=== PATIENT | female | born 1930 | race Caucasian/White ===

== ENCOUNTER 2018-07-09 17:39 | Inpatient (IN) | payer OTHER, MEDICARE ==
[~2018-07-09] VITALS: Ht 149.9 cm; Wt 42.8 kg
[2018-07-09 17:59] VITALS: Ht 149.9 cm; Wt 42.8 kg
--- NOTE | 2018-07-09 18:19 | NUR ---
PT COMES TO ER WITH C/O ABDOMIANL DISTENTION FOR THE LAST SEVERAL DAYS, PT WAS BIBA FROM NURSING HALF-WAY. PER BLS REPORT, PT HAS BEEN COMPLAINING OF ABD DISTENTION, ALL BLOOD WORK AND TESTS HAVE REVEALED NOTHING SIGNIFICANT AT LONGTERM , BUT PER REPORT; FAMILY WANTED TO BRING HER HERE TO ER FOR A SECOND EVALUATION. PT AAOX4, IN NAD. DENIES ANY PAIN OR SOB, NO N/V/D. NO FAMILY AT BEDSIDE. SAFETY PRECAUTIONS IN PLACE, CALLLIGHT WITHIN RANGE. DOORS LEFT OPEN FOR VISIBILITY. DR VOSS IN ROOM FOR EXAM.
[2018-07-09 18:22] LABS: BASOPHIL % 1.1 % (0-2); PLATELET COUNT 288 x10^3mcL (130-400); RED CELL DISTRIBUTION WIDTH 16.9 % (11.5-14.5)
--- NOTE | 2018-07-09 18:29 | NUR ---
IV INSERTED TO RT AC #20, GOOD BLOOD RETURN. CN AWARE THAT IT MAY BE IN THE ARTERY, TO CHECK WELL. PENDING OTHER IV INSERTION. VSS
--- NOTE | 2018-07-09 18:41 | NUR ---
CONNER GIBSON FROM [facility] CALLED FOR REPORT, LAST BM 07/06/18. STATES PT IS HERE FOR SECOND EVAL.
[2018-07-09 18:53] LABS: CALCIUM 9.3 mg/dL (8.5-10.1); CARBON DIOXIDE 25.6 mmol/L (21-32); CHLORIDE SERUM 104 mmol/L (98-107); CREATININE SERUM 0.9 mg/dL (0.6-1.0); GLUCOSE SERUM 101 mg/dL (74-106); SODIUM SERUM 138 mmol/L (136-145)
[2018-07-09 18:57] LABS: ALKALINE PHOSPHATASE 134 U/L (46-116); ALT/SGPT 37 U/L (14-59); AST/SGOT 50 U/L (15-37); BILIRUBIN TOTAL 0.7 mg/dL (0.20-1.00); LIPASE 44 IU/L (73-393)
[2018-07-09 18:58] LABS: TOTAL PROTEIN, SERUM 5.9 g/dL (6.4-8.2)
--- NOTE | 2018-07-09 19:00 | NUR ---
SECOND RN AT BEDSIDE TO CONFIRM PLACEMENT, WILL ENDORSE TO ONCOMING RN.
--- NOTE | 2018-07-09 19:12 | NUR ---
RECEIVED REPORT FROM VAMSHI GONZALEZ. I WILL RESUME FURTHER CARE OF THIS PATIENT.
--- NOTE | 2018-07-09 19:30 | NUR ---
PT IS AAOX4, NO DISTRESS NOTED, RESP E/U. PT DENIES ANY PAIN AT THIS TIME. PT ON MONITOR, VSS. WILL CONT TO MONITOR.
--- NOTE | 2018-07-09 20:40 | NUR ---
PT TAKEN OFF THE FLOOR VIA GURNEY BY [employer] AND RETURNED WITHOUT INCIDENT.
--- NOTE | 2018-07-09 21:27 | NUR ---
PT IN POSTION OF COMFORT LAYING IN BED, NO DISTRESS NOTED. OFFERED ANOTHER BLANKET TO PT SINCE SHE STATED SHE WAS COLD. RESP E/U. GRANDAUGHTER AT THE BEDSIDE. WILL CONT TO MONITOR.
--- NOTE | 2018-07-09 21:52 | NUR ---
PLACED PT ON BEDPAN TO COLLECT URINE. NOTED PT HAD A WET DIAPER. CLEANED PT AND PLACED A NEW DIAPER ON. NOTED PT HAS PAD TO COCCYX AREA, NOTED BLANCHABLE REDNESS TO SKIN. PT TOLERATED BED URIOSTEGUI WELL. PT PLACE IN POSITION OF COMFORT BACK IN BED. NO SIGNS OF DISTRESS, AAOX4, RESP E/U. WILL CONT TO MONITOR.
--- NOTE | 2018-07-09 22:20 | NUR ---
PT RESTING IN POSITION OF COMFORT, AAOX4, NO DISTRESS NOTED, RESP E/U. WILL CONT TO MONITOR.
[2018-07-09 23:28] LABS: microscopic required? NO
[2018-07-09] MEDS ORDERED: D-20001 TAB PO (23:39)
[2018-07-09] MEDS ORDERED: NOR5 PO (23:39)
[2018-07-09] MEDS ORDERED: ASPIRIN ADULT L81 M5 PO (23:39)
[2018-07-09] MEDS ORDERED: AMIODARONE HCL200 MG PO (23:39)
[2018-07-09] MEDS ORDERED: VITAMIN B121000 MCG PO ×2 (23:39→23:41)
[2018-07-09] MEDS ORDERED: MULTI-VITAMINS1 TAB PO (23:40)
[2018-07-09] MEDS ORDERED: TOPROL XL25 MG PO (23:40)
[2018-07-09] MEDS ORDERED: TIROSINT75 MC1 PO (23:40)
[2018-07-09] MEDS ORDERED: ELIQUIS2.5 MG PO (23:40)
[2018-07-09] MEDS ORDERED: DULCOLAX10 M1 RC (23:41)
[2018-07-09] MEDS ORDERED: ACETAMINOP160 MG/52 PO (23:41)
[2018-07-09] MEDS ORDERED: TRAMADOL HCL50 MG PO (23:42)
[2018-07-09] MEDS ORDERED: FLEET ENEMA135 ML RC (23:42)
[2018-07-09] MEDS ORDERED: NITROGLYCERIN0.4 MG SL (23:42)
[2018-07-09] MEDS ORDERED: ROBL PO (23:42)
[2018-07-09] MEDS ORDERED: GOOD NEIGH1200 MG/15 PO (23:42)
[2018-07-09 23:49] LABS: PHOSPHOROUS 2.6 mg/dL (2.5-4.9)
[2018-07-09 23:50] LABS: CHOLESTEROL/HDL RATIO 4.9
[2018-07-09 23:52] LABS: urine erythrocyte NEGATIVE (NEGATIVE)
[2018-07-10] VITALS (12 sets, daily range): BP systolic 101–155; BP diastolic 39–74
[2018-07-10 00:06] LABS: FREE T4 1.41 ng/dL (0.76-1.46); FREE THYROXINE INDEX 3.8 ug/dL (1.4-4.5); T4(THYROXINE) 10.1 ug/dL (4.7-13.3)
--- NOTE | 2018-07-10 00:23 | NUR ---
GAVE REPORT TO PASTOR GONZALEZ ON TELE, WHO WILL RESUME FURTHER CARE OF THIS PATIENT.
[2018-07-10 00:25] LABS: T3 TOTAL 0.46 ng/mL
--- NOTE | 2018-07-10 00:35 | NUR ---
DURING IV INSERTION, NOTED ECCHYMOSIS AND SWELLING NOTED ON LEFT HAND FROM A PREVIOUS IV INSERTION ATTEMPT BY ANOTHER NURSE
--- NOTE | 2018-07-10 01:24 | NUR ---
RECEIVED PT FROM ED VIA IBIS. ORIENTED PT TO ROOM AND SURROUNDINGS. IV NOTED TO PATENT AND INTACT. INSTRUCTED PT ON THE USE OF CALL LIGHT FOR ASSISTANCE. ENDORSED PT TO PRIMARY NURSE PASTOR
--- NOTE | 2018-07-10 02:00 | NUR ---
TURNED AND REPOSITIONED FOR COMFORT. PLACED CALL LIGHT WITHIN REACH, DAUGHTER AT BEDSIDE VERY SUPPORTIVE OF PT'S CURRENT PLAN OF CARE.CALLLIGHT WITHIN REACH. INSTRUCTED PT/DAUGHTER TO CALL FOR ANY ASSISTANCE NEEDED AND VERBALIZED UNDERSTANDING.
--- NOTE | 2018-07-10 04:30 | NUR ---
TYLENOL 650MG PO GIVEN FOR ABDOMINAL PAIN ON SCAE 05/18. LASIX 40MG IVP GIVEN ORDERED. ZOSYN 2.25GM NOT GIVEN, NOT AVAILABLE AT [facility] MADE AWARE AND INSTRUCTED TO WAIT FOR THE AM PHARMACY, ANYWAY ZOSY 3.375GM GIVEN AT ER. TONY NURSE AWARE.
--- NOTE | 2018-07-10 06:18 | NUR ---
PAIN LEVEL 0/10, KEPT CLEAN AND DRY. ALL NEEDS ATTEDNED.
[2018-07-10 07:16] LABS: CALCIUM 9.2 mg/dL (8.5-10.1); CARBON DIOXIDE 22.8 mmol/L (21-32); CHLORIDE SERUM 105 mmol/L (98-107); CREATININE SERUM 0.9 mg/dL (0.6-1.0); GLUCOSE SERUM 93 mg/dL (74-106); POTASSIUM SERUM 3.9 mmol/L (3.5-5.1); SODIUM SERUM 136 mmol/L (136-145)
[2018-07-10 07:20] LABS: BASOPHIL % 0.8 % (0-2); PLATELET COUNT 294 x10^3mcL (130-400)
--- NOTE | 2018-07-10 07:40 | NUR ---
PATIENT RESTING IN BED, NO ACUTE RESP DISTRESS NOTED. PATIENT ON 2L NC. LUNGS SOUNDS DIMINISHED TO THE BASES. ABD APPEARS DISTENDED. ECCHYMOSIS NOTED TO BUE. BLANCHABLE ERYTHEMA TO COOCYS, OPTIFAOM APPLIED. IV TO LH SALINE LOCK. CALL LIGHT WITHIN REACH, BED IN LOW POSITION, WILL CONTINUE TO MONIOTR.
[2018-07-10 08:13] LABS: RED CELL DISTRIBUTION WIDTH 17.2 % (11.5-14.5)
--- NOTE | 2018-07-10 08:20 | NUR ---
PHYSICAL THERAPY AT BEDSIDE.
--- NOTE | 2018-07-10 10:20 | NUR ---
PATIENT IV TO LEFT HAND BECAME INFILTRATIED, CATH INTEACT. NEW 22G IV INSERTED TO RFA, IV INSERTED BY LISA CONWAY. IV SITE CDI, AND PATENT. CALL LIGHT WITHIN REACH, BED IN LOW POSITION WILL CONTINUE TO MONITOR.
--- NOTE | 2018-07-10 13:45 | NUR ---
DR MCKEON AT BEDSIDE FOR PARACENTESIS. DR MCKEON, EXPLAINED PROCEDURE, PATIENT UNDERSTOOD AND SIGNED CONSENT FOR PARACENTESIS.
[2018-07-10 16:58] LABS: SOURCE FLUID ASCITES
[2018-07-10 16:59] LABS: APPEARANCE FLUID HAZY; COLOR FLUID PALE YELLOW; LYMPHOCYTE FLUID 25 %; MONOCYTE FLUID 68 %; RBC FLUID 150 /cumm; WBC FLUID 40 /cumm
--- NOTE | 2018-07-10 19:00 | NUR ---
PATIENT IS STABLE, NO ACUTE DISTRESS NOTED. PATIENT DENIES PAIN. NO SOB, PATIENT ON ROOM AIR. IV TO RFA CDI, NO S/S OF INFILTRATION. FAMILY AT BEDSIDE. CALL LIGHT WITHIN REACH, BED IN LOW POSITION.
--- NOTE | 2018-07-10 19:30 | NUR ---
RECEIVED REPORT FROM DAY SHIFT RN. PT RESTING IN BED. AA&O TO PERSON AND PLACE. REORIENTED TO TIME. NO SOB ON O2 2L VIA NC. NO C/O PAIN. NO DISTRESS NOTED. IV TO RFA, INTACT. SAFETY MEASURES IN PLACE. BED IN LOWEST POSITION. SIDE RAILS UP X2. AIR MATTRESS IN PLACE. DEMONSTRATED HOW TO USE THE CALL LIGHT FOR ASSISTANCE. CALL LIGHT WITHIN REACH. FAMILY AT BEDSIDE.
--- NOTE | 2018-07-11 00:50 | NUR ---
PT RESTING WITH EYES CLOSED. NO SOB ON O2 2L VIA NC. BREATHING EVEN AND UNLABORED. NO FACIAL GRIMACING. NO DISTRESS NOTED. SAFETY MEASURES IN PLACE. CALL LIGHT WITHIN EASY REACH.
[2018-07-11 04:56] VITALS: BP 106/53
--- NOTE | 2018-07-11 05:58 | NUR ---
PT SLEPT AT LONG INTERVALS. NO SOB ON O2 2L VIA NC. BREATHING EVEN AND UNLABORED. NO C/O PAIN. NO DISTRESS NOTED. SAFETY MEASURES MAINTAINED. ALL NEEDS ATTENDED TO. ASSISTED WITH REPOSITIONING. PT MADE COMFORTABLE. WILL ENDORSE CONTINUITY OF CARE TO ONCOMING RN.
--- NOTE | 2018-07-11 07:15 | NUR ---
RECEIVED PT FROM FACILITIES PLANT ENGINEER. PT AWAKE, ALERT. A/OX2. PT ON 2LNC WITH NO RESP DISTRESS NOTED. PT ON TELE #5, NO CHEST PAIN NOTED. IV ACCESS RFA, C/D/I. PERIPHERAL PULSES PALPABLE, NO EDEMA NOTED. ACTIVE BOWEL SOUNDS NOTED. PT DENIES PAIN AT THIS TIME. SAFETY MEASURES IN PLACE, BED LOW AND LOCKED. CALL LIGHT WITHIN REACH.
[2018-07-11 07:58] LABS: BASOPHIL % 0.2 % (0-2); PLATELET COUNT 272 x10^3mcL (130-400)
[2018-07-11 08:00] LABS: RED CELL DISTRIBUTION WIDTH 17.1 % (11.5-14.5)
[2018-07-11 08:30] LABS: CARBON DIOXIDE 26.5 mmol/L (21-32); CHLORIDE SERUM 104 mmol/L (98-107); CREATININE SERUM 1.2 mg/dL (0.6-1.0); GLUCOSE SERUM 92 mg/dL (74-106); PHOSPHOROUS 3.2 mg/dL (2.5-4.9); POTASSIUM SERUM 3.5 mmol/L (3.5-5.1); SODIUM SERUM 138 mmol/L (136-145)
[2018-07-11 09:45] VITALS: BP 113/51
--- NOTE | 2018-07-11 10:49 | NUR ---
PT LYING IN BED AT THIS TIME. PT STATES SHE IS "TIRED". ALBUMIN IV ADMINISTERED ORDERED (SEE EMAR). ATTORNEY LAWYER WITH PATIENT CLEANING AND REPOSITIONING. SAFETY MEASURES MAINTAINED.
--- NOTE | 2018-07-11 12:58 | NUR ---
PT COMPLAINING OF PAIN TO KNEES 10/10 FROM ARTHRITIS PER FAMILY MEMBER TRANSLATING. OXYCODONE ADMINISTERED ORDERED PRN (SEE EMAR). PT CLEANED AND REPOSITONED WITH SPINDLE SANDER. WILL MONITOR. SAFETY MAINTAINED.
--- NOTE | 2018-07-11 14:18 | NUR ---
PT RESTING COMFORTABLY AT THIS TIME. NO DISCOMFORT NOTED. WILL CONT TO MONITOR.
[2018-07-11 14:20] VITALS: BP 105/43
--- NOTE | 2018-07-11 16:16 | NUR ---
PHYSICAL THERAPY DAILY NOTES CO-SIGN All documentation done by the Piling Cutter for 07/11/18 has been reviewed. I agree with the documentation. Reviewed/Co-Signed by: Deloris Glover PT Documentation Done by:ASHLEY CHINCHILLA PTA
[2018-07-11 17:09] VITALS: BP 96/35
--- NOTE | 2018-07-11 18:53 | NUR ---
PT STABLE AT THIS TIME. ALL NEEDS TENDED TO THROUGHOUT SHIFT. NO ACUTE DISTRESS OR DISCOMFORT NOTED. SAFETY MEASURES IN PLACE. WILL CONTINUE TO MONITOR AND ENDORSE TO CONSULTING PROJECT DIRECTOR.
--- NOTE | 2018-07-11 19:30 | NUR ---
RECEIVED PT IN BED AAOX2 WITH FAMILY AT BEDSIDE.NO ACUTE RESPIRATORY DISTRESS NOTED. NO S/S OF PAIN AT THIS TIME. IV SITE PATENT AND INTACT. ECCHYMOSIS BUE AND BLANCHABLE ERYTHEMA TO COCCYX WITH OPTIFOAM. BED IN LOWEST POSITION,CALL LIGHT WITHIN RECH. WILL CONTINUE TO MONITOR.
[2018-07-11 21:13] VITALS: BP 117/42
[2018-07-12 05:45] VITALS: BP 120/47
[2018-07-12 06:20] LABS: BASOPHIL % 0.3 % (0-2); PLATELET COUNT 241 x10^3mcL (130-400)
[2018-07-12 06:47] LABS: RED CELL DISTRIBUTION WIDTH 16.7 % (11.5-14.5)
[2018-07-12 06:52] LABS: CALCIUM 9.5 mg/dL (8.5-10.1); CARBON DIOXIDE 26.4 mmol/L (21-32); CHLORIDE SERUM 104 mmol/L (98-107); CREATININE SERUM 1.3 mg/dL (0.6-1.0); GLUCOSE SERUM 116 mg/dL (74-106); PHOSPHOROUS 2.8 mg/dL (2.5-4.9); POTASSIUM SERUM 3.1 mmol/L (3.5-5.1); SODIUM SERUM 139 mmol/L (136-145)
--- NOTE | 2018-07-12 07:35 | NUR ---
CARE ENDORSED TO DAY NURSE
[2018-07-12 09:00] VITALS: BP 122/46
--- NOTE | 2018-07-12 13:00 | NUR ---
PT WAS SEEN BY PT [facility] TODAY AND WAS OUT OF BED TO BEDSIDE CHAIR. FAMILY IN THE ROOM.
--- NOTE | 2018-07-12 15:30 | NUR ---
ELLIE FROM ADMISSION AT [facility] IS HERE AND INQUIRED ABOUT PT'S POSSIBLE D/C. SHE ASKED TO BE CALLED IF PT WILL BE D/C BACK TO [facility]; SHE GAVE CONTACT NO: [phone]
--- NOTE | 2018-07-12 16:23 | NUR ---
PT IS SLEEPING BUT EASILY AROUSABLE; OX1; TAMAZIGHT SPEAKING; NO SOB; O2 2L/NC IN USE. DENIES PAIN AT THIS TIMES. SL ON THE LFA INTACT. FAMILY IN THE ROOM. FALL AND SAFETY PRECAUTION REINFORCED; WILL CONTINUE TO MONITOR STATUS.
--- NOTE | 2018-07-12 17:00 | NUR ---
PT IS MORE CONVERSANT FILIPE WITH FAMILY MEMBERS; O2/NC OFF AT THIS TIME. NO SOB.
[2018-07-12 17:52] VITALS: BP 139/54
--- NOTE | 2018-07-12 19:05 | NUR ---
NO NEW ACUTE CHANGES IN STATUS. REMAIN ON RM AIR WITHOUT SOB. WILL CONTINUE TO MONITOR STATUS.
--- NOTE | 2018-07-12 19:35 | NUR ---
RECEIVED PT LAYING IN BED, NO ACUTE DISTRESS OBSERVED, SON AT BEDSIDE. 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 MED-SURG, NO TELE, DENIES CP. PULSES PRESENT AND EQUAL THROUGHOUT, NO EDEMA. BREATHING ON 2L NC, EVEN AND UNLABORED, DENIES SOB OR DYSPNEA, LUNGS DIM TO BASES, O2 SAT 94% ABD ROUND AND SOFT WITH ACTIVE BOWEL SOUNDS, NO N/V/D. INCONTINENT OF STOOL AND URINE, WILL PROVIDE PERICARE NEEDED. GENERALIZED WEAKNESS AND R SIDE WEAKNESS, W/C BOUND AT BASELINE, TURN A REPOSITION Q2H. ECCHYMOSIS TO BUE, BLANCHABLE ERYTHEMA TO COCCYX, OPTIFOAM IN PLACE CDI. IV TO LFA IN PLACE, DRY, PATENT, INTACT, S/L, NO PAIN, REDNESS OR SWELLING NOTED. COMFORT AND SAFETY MEASURES IN PLACE. ALL NEEDS ASSESSED AND ATTENDED TO. CALL LIGHT WITHIN REACH. WILL CONTINUE TO MONITOR
[2018-07-12 20:20] VITALS: BP 102/45
[2018-07-13 02:20] VITALS: BP 120/43
[2018-07-13 05:15] VITALS: BP 106/43
--- NOTE | 2018-07-13 05:15 | NUR ---
PT C/O PAIN TO BLE, REQUESTING PAIN MED. MEDICATED WITH PRN NORCO PER EMAR
--- NOTE | 2018-07-13 05:45 | NUR ---
PT'S B/P 106/43 WITH MAP OF 64. [address]. WITT MADE AWARE, NO NEW ORDERS. PT DENIES PAYNE, DIZZINESS OR DISCOMFORT AT THIS TIME. NO DISTRESS OBSERVED. CALL LIGHT WITHIN REACH. WILL CONTINUE TO MONITOR
--- NOTE | 2018-07-13 06:06 | NUR ---
NO SIGNIFICANT CHANGES TO REPORT, PT COMPLIED WITH NURSING CARE THROUGHOUT THE SHIFT WITH NO ACUTE EVENTS OVERNIGHT. NO ACUTE DISTRESS OBSERVED AT THIS TIME, PT LAYING IN BED, BREATHING EVEN AND UNLABORED, AROUSABLE TO VERBAL STIMULI. COMFORT AND SAFETY MEASURES MAINTAINED. ALL NEEDS ASSESSED AND ATTENDED TO. CALL LIGHT WITHIN REACH. WILL CONTINUE TO MONITOR AND ENDORSE CARE TO DAY SHIFT NURSE
[2018-07-13 06:24] LABS: BASOPHIL % 0.2 % (0-2); PLATELET COUNT 223 x10^3mcL (130-400)
[2018-07-13 06:36] LABS: CALCIUM 9.2 mg/dL (8.5-10.1); CARBON DIOXIDE 27.9 mmol/L (21-32); CHLORIDE SERUM 105 mmol/L (98-107); CREATININE SERUM 1.3 mg/dL (0.6-1.0); GLUCOSE SERUM 115 mg/dL (74-106); POTASSIUM SERUM 3.8 mmol/L (3.5-5.1); SODIUM SERUM 140 mmol/L (136-145)
--- NOTE | 2018-07-13 07:35 | NUR ---
RECEIVED PT IN NO ACUTE DISTRESS. SLEEPING BUT AROUSABLE. BREATHING EVEN AND UNLABORED ON 2L NC. NO PAIN NOTED. ON AIR MATTRESS, TURN Q2H. IV TO LFA, NO REDNESS OR SWELLING. SON AT BEDSIDE. FALL PRECAUTIONS IN PLACE. BED IN LOW POSITION, CALL LIGHT WITHIN REACH. WILL CONTINUE TO MONITOR.
[2018-07-13 07:46] LABS: RED CELL DISTRIBUTION WIDTH 17.3 % (11.5-14.5)
[2018-07-13 08:23] VITALS: BP 117/53
--- NOTE | 2018-07-13 08:46 | NUR ---
PT SITTING UP IN CHAIR EATING BREAKFAST. ASSISTED BY PT'S SON. WILL CONTINUE TO MONITOR.
--- NOTE | 2018-07-13 13:56 | NUR ---
PT WITH POOR APPETITE. FAMILY REQUESTING FOR PT TO HAVE ENSURE. ROBIN PROMOTIONS COORDINATOR MADE AWARE AND GAVE TELEPHONE ORDER TO ADD ENSURE WITH EACH MEAL. WILL CARRY OUT ORDERS.
[2018-07-13 17:29] VITALS: BP 118/46
--- NOTE | 2018-07-13 18:22 | NUR ---
PT IN NO ACUTE DISTRESS. RESP EVEN AND UNLABORED ON 2L NC. RT PROTOCOL. POOR APPETITE. IVF INFUSING, NO REDNESS OR SWELLING. NO C/O PAIN. ON AIR MATTRESS. BED IN LOW POSITION, CALL LIGHT WITHIN REACH. WILL ENDORSE TO ONCOMING SHIFT.
--- NOTE | 2018-07-13 19:30 | NUR ---
RECEIVED PT LAYING IN BED, NO ACUTE DISTRESS OBSERVED. 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 MED-SURG, NO TELE, DENIES CP. PULSES PRESENT AND EQUAL THROUGHOUT, NO EDEMA. BREATHING ON 2L NC, EVEN AND UNLABORED, DENIES SOB OR DYSPNEA, LUNGS DIM TO BASES, O2 SAT 95% ABD ROUND AND SOFT WITH ACTIVE BOWEL SOUNDS, NO N/V. INCONTINENT OF STOOL AND URINE, WILL PROVIDE PERICARE NEEDED. GENERALIZED WEAKNESS AND R SIDE WEAKNESS, W/C BOUND AT BASELINE, TURN A REPOSITION Q2H. ECCHYMOSIS TO BUE, BLANCHABLE ERYTHEMA TO COCCYX, OPTIFOAM IN PLACE CDI. IV TO LFA IN PLACE, DRY, PATENT, INTACT, S/L, NO PAIN, REDNESS OR SWELLING NOTED. COMFORT AND SAFETY MEASURES IN PLACE. ALL NEEDS ASSESSED AND ATTENDED TO. CALL LIGHT WITHIN REACH. WILL CONTINUE TO MONITOR
--- NOTE | 2018-07-13 20:48 | NUR ---
PT C/O PAIN IN HER WHOLE BODY AND REQUESTING PAIN MED. MEDICATED WITH PRN NORCO PER EMAR
[2018-07-13 20:52] VITALS: BP 102/50
[2018-07-14 05:55] VITALS: BP 141/51
--- NOTE | 2018-07-14 06:22 | NUR ---
NO SIGNIFICANT CHANGES TO REPORT, PT COMPLIED WITH NURSING CARE THROUGHOUT THE SHIFT WITH NO ACUTE EVENTS OVERNIGHT. NO ACUTE DISTRESS NOTED AT THIS TIME, PT LAYING IN BED, BREATHING EVEN AND UNLABORED, AROUSABLE TO VERBAL STIMULI. COMFORT AND SAFETY MEASURES MAINTAINED. ALL NEEDS ASSESSED AND ATTENDED TO. CALL LIGHT WITHIN REACH. WILL CONTINUE TO MONITOR AND ENDORSE CARE TO DAY SHIFT NURSE
[2018-07-14 06:36] LABS: CALCIUM 9.3 mg/dL (8.5-10.1); CARBON DIOXIDE 28.6 mmol/L (21-32); CHLORIDE SERUM 104 mmol/L (98-107); CREATININE SERUM 1.4 mg/dL (0.6-1.0); GLUCOSE SERUM 117 mg/dL (74-106); POTASSIUM SERUM 3.6 mmol/L (3.5-5.1); SODIUM SERUM 139 mmol/L (136-145)
[2018-07-14 07:00] LABS: BASOPHIL % 0.5 % (0-2); PLATELET COUNT 233 x10^3mcL (130-400)
--- NOTE | 2018-07-14 07:50 | NUR ---
PATIENT RESTING IN BED. NO ACUTE RESP. DISTRESS NOTED. PATIENT ON 2L NC. LUNG SOUNDS DIMINISHED TO THE BASES. ABDOMEN APPEARS SOFT/DISTENDED, BOWELS SOUNDS ACTIVE X4. PATIENT IS INCONTINENT. PATIENT C/O PAIN OF 05/18 BUT TOLERABLE. PATIENT IS ABLE TO TRANSFER TO CHAIR WITH MAX ASSIST. ECCHYMOSIS NOTED TO BUE, OPTIFOAM APPLIED TO COCCYX . IV TO LFA CDI, NO S/S OF INFILTRATION. FAMILY AT BEDSIDE. CALL LIGHT WITHIN REACH, BED IN LOW POSITION, WILL CONTINUE TO MONITOR FOR CHANGES.
--- NOTE | 2018-07-14 09:00 | NUR ---
HELD ALDACTONE, NORVASC, AND LASIX. PATIENT BP WAS 108/53. ROPING TENDER ROBIN MADE AWARE. FAMILY ASKED IF THEY COULD BRING PATIENT FOOD FROM HOME, ROPING TENDER ROBIN SAID FOOD FROM HOME IS OKAY. CALL LIGHT WITHIN REACH, BED IN LOW POSITION. WILL CONTINUE TO MONITOR.
[2018-07-14 09:40] VITALS: BP 108/53
--- NOTE | 2018-07-14 10:20 | NUR ---
PHYSICAL THERAPY AT BEDSIDE.
--- NOTE | 2018-07-14 16:58 | NUR ---
PHYSICAL THERAPY DAILY NOTES CO-SIGN All documentation done by the Dermatological Surgeon for 07/14/18 has been reviewed. I agree with the documentation. Reviewed/Co-Signed by: Deloris Glover PT Documentation Done by:ASHLEY CHINCHILLA PTA
--- NOTE | 2018-07-14 17:04 | NUR ---
PAITENT C/O PAIN TO BLE. HELP REPOSITION PATIENT TO ALLEVIATE PAIN AND MEDICATED PATIENT WITH NORCO PER PROTOCOL. WILL CONTINUE TO MONITOR PATIENT, FAMILY AT BEDSIDE. CALL LIGHT WITHIN REACH, BED IN LOW POSITION.
--- NOTE | 2018-07-14 17:28 | NUR ---
PHYSICAL THERAPY DAILY NOTES CO-SIGN All documentation done by the Microbiology Lab Analyst for 07/14/18 has been reviewed. I agree with the documentation. Reviewed/Co-Signed by: Kashif Escoto PT Documentation Done by:SAKSHI RODGERS YOUTH PROBATION OFFICER FOR 07/12/2018
[2018-07-14 17:52] VITALS: BP 139/51
--- NOTE | 2018-07-14 19:10 | NUR ---
PATIENT IS STABLE AT THIS TIME, NO ACUTE CHANGES THROUGH OUT SHIFT. PATIENT DENIES PAIN AT THIS TIME. IV TO LFA SALINE LOCK, NO S/S OF INFILTRATION. FAMILY AT BEDSIDE. AIR MATRESS IN PLACE. CALL LIGHT WITHIN REACH, BED IN LOW POSITION. ENDORSED REPORT TO MP.
--- NOTE | 2018-07-14 19:35 | NUR ---
PT RESTING IN BED, NO ACUTE DISTRESS NOTED. AOX3, DENIES PAYNE/DIZZINESS. FORGETFUL AT TIMES. MEDSURG PT, DENIES CP. PULSES PALPABLE BILAT, DENIES NUMBNESS/TINGLING IN FEET. PT ON ELIQUID FOR HX OF A FIB. RESP EVEN AND UNLABORED ON 2LNC, DENIES SOB. ABD SOFT, ROUND, DISTENTION NOTED. DENEIS ABD PAIN. PT ON LACTULOSE. PT INCONTINENT OF URINE AND STOOL. GENERALIZED WEAKNESS, ON AIR MATTRESS. PT USES W/C AT BASELINE. PT FROM TRELLIS. PT WITH ECCHYMOSIS TO BUE, BLNCHABLE ERYTHEMA NOTED TO COCCYX. OPTIFORM IN PLACE. CDI. IV SITE SALINE LOCKED TO LFA, NO REDNESS, SWELLING OR PAIN NOTED. ALL COMFORT AND SAFETY MEASURES PROVIDED FOR, CALL LIGHT WITHIN REACH, BED IN LOWEST POSITION, WILL CONTINUE TO MONITOR.
[2018-07-14 21:57] VITALS: BP 130/67
[2018-07-14 22:00] VITALS: BP 130/67
--- NOTE | 2018-07-15 05:15 | NUR ---
PT RESTED IN INTERVALS DURING SHIFT, NO ACUTE CHANGES OCCURRING OVERNIGHT. PT HAD 2 BM AND URINATED DURING SHIFT. PT REMAINS ON 2LNC. PT MEDICATED X1 WITH NORCO FOR GENERALIZED PAIN. ALL COMFORT AND SAFETY MEASURES PROVIDED FOR, CALL LIGHT WITHIN REACH, BED IN LOWEST POSITION, WILL CONTINUE TO MONITOR.
[2018-07-15 06:19] VITALS: BP 125/70
[2018-07-15 06:35] LABS: BASOPHIL % 0.4 % (0-2); PLATELET COUNT 182 x10^3mcL (130-400)
[2018-07-15 06:52] LABS: CALCIUM 9.3 mg/dL (8.5-10.1); CARBON DIOXIDE 27.1 mmol/L (21-32); CHLORIDE SERUM 104 mmol/L (98-107); CREATININE SERUM 1.3 mg/dL (0.6-1.0); GLUCOSE SERUM 96 mg/dL (74-106); POTASSIUM SERUM 3.6 mmol/L (3.5-5.1); SODIUM SERUM 137 mmol/L (136-145)
[2018-07-15 06:56] LABS: RED CELL DISTRIBUTION WIDTH 17.6 % (11.5-14.5)
--- NOTE | 2018-07-15 07:20 | NUR ---
RECEIVED BEDSIDE REPORT FROM DIRECTOR OF WEB MARKETING NURSE AT THIS TIME. PATIENT RESTING COMFORTABLY IN BED. NO APPARENT DISTRESS OR DISCOMFORT NOTED. BREATHING EVEN AND UNLABORED. NO RESPIRATORY DISTRESS NOTED. NO INDICATION OF SHORTNESS OF BREATH. NO INDICATION OF CHEST PAIN AT THIS TIME. IV PATENT AND INTACT. ALL NEEDS ATTENDED TO. WILL CONTINUE TO MONITOR
--- NOTE | 2018-07-15 07:37 | NUR ---
ENDORSED ALL CARE TO DAYSHIFT NURSE, ALL QUESTIONS AND CONCERNS ADDRESSED, ALL COMFORT AND SAFETY MEASURES PROVIDED FOR, CALL LIGHT WITHIN REACH. BED IN LOWEST POSITION.
[2018-07-15 09:00] VITALS: BP 128/50
--- NOTE | 2018-07-15 10:22 | NUR ---
ALL MORNING MEDICATIONS ADMINISTERED. PATIENT TOLERATED MEDICATION WELL. NO ADVERSE EFFECTS NOTED. ALL NEEDS ATTENDED TO. WILL CONTINUE TO MONITOR
--- NOTE | 2018-07-15 13:15 | NUR ---
PATIENT EATING LUNCH AT THIS TIME. PATIENT REPORTS POOR APPETITE. PATIENT OKAY DRINKING ENSURE SUPPLEMENT ON DIET TRAY. ALL NEEDS ATTENDED TO. WILL CONTINUE TO MONITOR
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
--- NOTE | 2018-07-15 13:20 | NUR ---
1. Recommend continuing puree diet. 2. Recommend Ensure Enlive BID
[2018-07-15 17:37] VITALS: BP 101/49
--- NOTE | 2018-07-15 18:53 | NUR ---
PATIENT RESTING COMFORTABLY IN BED AT THIS TIME. NO APPARENT DISTRESS OR DISCOMFORT NOTED. IV PATENT AND INTACT. ALL QUESTIONS AND CONCERNS ADDRESSED. SAFETY PRECAUTIONS MAINTAINED. ALL NEEDS ATTENDED TO. WILL ENDORSE ALL CARE TO REPAIRER AND CHECKER NURSE
--- NOTE | 2018-07-15 19:30 | NUR ---
RECEIVED REPORT FROM DAY SHIFT RN. PT RESTING IN BED. A/O TO PERSON AND PLACE. REORIENTED TO TIME. NO SOB ON O2 2L VIA NC. NO C/O PAIN AT THIS TIME. NO DISTRESS NOTED. IV TO LFA, INTACT. SAFETY MEASURES IN PLACE. ON AIR MATTRESS. BED IN LOWEST POSITION. SIDE RAILS UP X2. INSTRUCTED PT TO USE THE CALL LIGHT FOR ASSISTANCE. CALL LIGHT WITHIN REACH.
[2018-07-15 21:04] VITALS: BP 119/45
--- NOTE | 2018-07-15 23:18 | NUR ---
PT C/O NAUSEA, MEDICATED WITH ZOFRAN.
--- NOTE | 2018-07-16 01:00 | NUR ---
PT RESTING WITH EYES CLOSED. NO SOB ON O2 2L VIA NC. NO DISTRESS NOTED. SAFETY MEASURES IN PLACE. CALL LIGHT WITHIN REACH.
--- NOTE | 2018-07-16 05:36 | NUR ---
PT SLEPT IN INTERVALS DURING SHIFT. NO SOB ON O2 2L VIA NC. BREATHING EVEN AND UNLABORED. NO C/O PAIN. SAFETY MEASURES MAINTAINED. ALL NEEDS ATTENDED TO. CALL LIGHT WITHIN REACH. WILL ENDORSE CONTINUITY OF CARE TO ONCOMING RN.
[2018-07-16 05:38] VITALS: BP 111/47
--- NOTE | 2018-07-16 06:30 | NUR ---
PHYSICAL THERAPY DAILY NOTES CO-SIGN All documentation done by the Latin Teacher for 07/16/18 has been reviewed. I agree with the documentation. Reviewed/Co-Signed by: Deloris Glover PT Documentation Done by:ASHLEY CHINCHILLA PTA FOR 07/15/18
[2018-07-16 06:33] LABS: BASOPHIL % 0.5 % (0-2); PLATELET COUNT 197 x10^3mcL (130-400)
[2018-07-16 06:42] LABS: CALCIUM 9.4 mg/dL (8.5-10.1); CARBON DIOXIDE 27.5 mmol/L (21-32); CHLORIDE SERUM 103 mmol/L (98-107); CREATININE SERUM 1.3 mg/dL (0.6-1.0); GLUCOSE SERUM 124 mg/dL (74-106); POTASSIUM SERUM 3.7 mmol/L (3.5-5.1); SODIUM SERUM 138 mmol/L (136-145)
[2018-07-16 06:47] LABS: RED CELL DISTRIBUTION WIDTH 17.4 % (11.5-14.5)
--- NOTE | 2018-07-16 07:10 | NUR ---
RECEIVED PATIENT AWAKE/ALERT IN BED, NO DISTRESS NOTED. DENIES PAIN. ASSISTING PATIENT SITTING UP IN BED. NO TELE. IV TO LFA INTACT AND SL NOTED. CALL LIGHT IN REACH.
--- NOTE | 2018-07-16 08:51 | NUR ---
PATIENT WANT TO LEAVE [facility]. RAFAEL Menchaca AT BEDSIDE EXPLAINED TO PATIENT AT LEAST NEED TO CHANGE THE RT FOOT DRESSING BEFORE LEAVING, PATIENT AGREE. PT AT BEDSIDE TRY TO TRAIN PATIENT ON USE CRUTCHES. PATIENT PULL OUT HIS IV ON PURPOSE RIGHT IN FRONT OF PT AND SPRING COILING MACHINE SETTER CASIMIRO AT BEDSIDE TO TRANSLATE.
[2018-07-16 09:57] VITALS: BP 109/46
--- NOTE | 2018-07-16 10:23 | NUR ---
PATIENT AWAKE/ALERT IN BED WITH FAMILY MEMBERS AT BEDSIDE, ADMINSITERED ALL PO MEDS WITH APPLESAUCE PATIENT TOLERATED WELL. LASIX IVP ADMINISTERED TO LFA IV PATENT AND FLUSH WELL. TREATING ENGINEER HELPER [place] CAME TO SPEAK WITH JERRY BURKS AND UPDATE POC, DISCUSS PLAN DISCHARGE TO [facility]. NEEDS ATTENDED. CALL LIGHT IN REACH.
--- NOTE | 2018-07-16 10:58 | NUR ---
P.T. NOTES UNABLE TO SEE PATIENT FOR P.T., STATES NOT FEELING WELL AT THE MOMENT, ALSO PER FAMILY PATIENT WILL BE GETTING DC TODAY TO SNF.
--- NOTE | 2018-07-16 13:03 | NUR ---
PATIENT SITTING UP IN BED ATE ABOUT 20% OF HER MEAL, DUE MEDS ADMINISTERED, ZOSYN IVPB INFUSING TO LFA IV PATENT. ASSIST PATIENT WITH DRINK. CALL LIGHT IN REACH.
[2018-07-16] MEDS ORDERED: ZOS2PM IV (15:01)
[2018-07-16 15:25] VITALS: BP 109/46
--- NOTE | 2018-07-16 17:28 | NUR ---
PATIENT LAYING IN BED NO DSITRESS NOTED, NEW IV STARTED TO #22G BY ZENAIDA RN, LFA IV LEAKING AND REMOVED, NO SWELLING NOTED. ZOSYN IVPB INFUSING TO . DUE MEDS GIVEN WITH APPLESAUCE. TOLERATED WELL. PAUL CARE PROVIDED FOR INCONT OF URINE. CHANGE TO ORANGE GOWN. DISCHARGE INSTRUCTION EXPLAINED TO DTR KIMMIE AT BEDSIDE. ALL QUESTION ADDRESSED. CALL LIGHT IN REACH.
--- NOTE | 2018-07-16 18:11 | NUR ---
CALLED TO AWILDA GAVE REPORT PRINCESS, PATIENT WILL BE [facility] AT 6:30PM.
--- NOTE | 2018-07-16 18:50 | NUR ---
REPORT GIVEN TO PREMIER EMT, PATIENT TRANSPORT VIA [facility]. DTR ACCOMPANY PATIENT TO [facility] IV TO HEPLOCK AND CONT IV ABX AT [facility]. ALL BELONGINGS WITH DTR.
--- NOTE | 2018-07-17 06:24 | NUR ---
PHYSICAL THERAPY DAILY NOTES CO-SIGN All documentation done by the [employer] for 07/17/18 has been reviewed. I agree with the documentation. Reviewed/Co-Signed by: Deloris Glover PT Documentation Done by:ASHLEY CHINCHILLA PTA FOR 07/16/18
== END 2018-07-16 18:50 ==
LOC: ED 17:39 → DU 22:40 → MU 07-11 15:10
PROVIDERS: Emergency Medicine; Family Medicine; ADMIT Internal Medicine
PROC: 0W9G3ZZ Drainage of Peritoneal Cavity, Percutaneous Approach (ICD-10-PCS; principal; 2018-07-10)
DX: K76.89 Other specified diseases of liver (principal); N17.0 Acute kidney failure with tubular necrosis; J96.00 Acute respiratory failure, unspecified whether with hypoxia or hypercapnia; E43 Unspecified severe protein-calorie malnutrition; J90 Pleural effusion, not elsewhere classified; J18.9 Pneumonia, unspecified organism; R18.8 Other ascites; I48.0 Paroxysmal atrial fibrillation; I69.351 Hemiplegia and hemiparesis following cerebral infarction affecting right dominant side; F03.90 Unspecified dementia, unspecified severity, without behavioral disturbance, psychotic disturbance, mood disturbance, and anxiety; Y95 Nosocomial condition; I10 Essential (primary) hypertension; R27.0 Ataxia, unspecified; E03.9 Hypothyroidism, unspecified; B18.2 Chronic viral hepatitis C; I25.2 Old myocardial infarction; Z68.1 Body mass index [BMI] 19.9 or less, adult; Z79.01 Long term (current) use of anticoagulants; Z79.899 Other long term (current) drug therapy
CPT/HCPCS: 49083; 84439; 87116; 87206; 97110-GP; 97116-GP; 97530-GP; C1729; J1940; J2405; J2543; J7030; J7050; J7620; P9047; Q0092; Q9967

== ENCOUNTER 2018-07-31 09:57 | Day surgery (SDC) | payer MEDICARE, OTHER ==
[~2018-07-31] VITALS: Ht 149.9 cm; Wt 41.0 kg
[~2018-07-31 09:57] MED LIST: ACETAMINOP160 MG/52 PO; AMIODARONE HCL200 MG PO; ASPIRIN ADULT L81 M5 PO; D-20001 TAB PO; DULCOLAX10 M1 RC; ELIQUIS2.5 MG PO; FLEET ENEMA135 ML RC; GOOD NEIGH1200 MG/15 PO; MULTI-VITAMINS1 TAB PO; NITROGLYCERIN0.4 MG SL; NOR5 PO; ROBL PO; TIROSINT75 MC1 PO; TOPROL XL25 MG PO; TRAMADOL HCL50 MG PO; VITAMIN B121000 MCG PO; ZOS2PM IV
[2018-07-31 10:24] VITALS: BP 121/62
--- NOTE | 2018-07-31 11:28 | NUR ---
RECEIVED PATIENT VIA W/C FROM ADMITTING WITH DAUGHTER WITH PATIENT. PATIENT IS ORIENTED TO HER NAME AND KNOWS HER DAUGHTER. RESP. REG., EVEN AND SHALLOW. ABD. DISTENDED. ADULT DIAPER ON ADMISSION-DRY. PATIENT STATES SHE HAS NOT VOIDED PER DAUGHTERS TRANSLATION. REDNESS NOTED TO SACRAL COCCYX AREA. PATIENT IS MAX ASSIST. PATIENT LIFTED ON TO THE GUERNY WITH ASSIST OF 2 RN'S. GOWN WAS PUT ON FOR PROCEDURE. PICTURE OF SACRAL COCCYX AREA TAKEN PER PROTOCOL AFTER DAUGHTER EXPLANED TO PATIENT IN [place]URIT[place]. PATIENT C/O OF HER FEET WHEN WE PUT ON THE GURNEY. NO FURTHER C/O AT THIS TIME. PATIENT MADE COMFORTABLE WITH WARNM BLANKETS. NO DISTRESS NOTED. DAUGHTER AT [facility] BEDSIDE. DAUGHTER STATERS SHE HAD A PARACENTESIS 2 WEEKS AGO.
--- NOTE | 2018-07-31 11:35 | NUR ---
SPOKE WITH PATIENT'S NURSE MINOO AT [facility]. ALTHOUGH INSTRUCTED MULTIPLE TIMES AND PROCEDURE WAS SCHEDULED 48 HOURS OUT TO HOLD BLOOD THINNERS, THE ELIQUIS WAS NEVER HELD. DR MIKE TORRES.
--- NOTE | 2018-07-31 12:01 | NUR ---
PATIENT IS RESTING QUIETLY. RESP. REG., EVEN AND SHALLOW WITH OUT DISTRESS. NO SOB NOTED. O2 VIA NASAL CANNULA ON SINCE ADM. AT 2L/MIN. DAUGHTER AT THE BEDSIDE. PATIENT REPOSITIONED ON HER SIDE. NO C/O OR DISTRESS NOTED.
--- NOTE | 2018-07-31 12:30 | NUR ---
PATIENT IS RESTING QUIETLY. RESP. REG. , EVEN AND SHALLOW WITH OUT DISTRESS NOTED. ULTRA SOUND TECH. AND INSTRUMENT AND ELECTRICAL TECHNICIAN AT THE BEDSIDE. PREPARING FOR THE PROCEDURE. NO C/O OR DISTRESS NOTED.
--- NOTE | 2018-07-31 12:41 | NUR ---
DR. MCKEON AT THE BEDSIDE. PARACENTSIS TO BEGIN AFTER DOCTOR EXPLAINS THE PROCEDURE.
--- NOTE | 2018-07-31 13:18 | NUR ---
DR. MCKEON STARTED THE PROCEDURE AT 1240 AFTER EXPLAINING THE PROCEDURE. NATASHA CONN RN AND LUANA ZUÑIGA. AT THE BEDSIDE. PATIENT IS TOLERATED PROCEDURE WELL. PARACENTESIS IN PROGRESS YEILDING CLOUDY YELLO FLUID. NO C/O OR DISTRESS NOTED. SEE RADIOLOGY NOTES FOR FURTHER INFORMATION REGADRING PROCEDURE.
[2018-07-31 13:25] VITALS: BP 99/55
--- NOTE | 2018-07-31 13:25 | NUR ---
PARACENTESIS COMPLETE AT THIS TIME. PATIENT TOLERATED PROCEDURE WELL. RESP. REG. AND EVEN WITH OUT DISTRESS. PARACENTESIS YEILDED 3800ML OF CLOUDY YELLOW FLUID. PATIENT IS RESTING QUIETLY. NO C/O OR DISTRESS NOTED.
[2018-07-31 13:40] VITALS: BP 99/51
[2018-07-31 14:00] VITALS: BP 101/50
--- NOTE | 2018-07-31 14:10 | NUR ---
DISCHARGED A/O VIA W/C AFTER GIVING INSTRUCTIONS TO DAUGHTER AND CAREGIVER WITH VERBAL RESPONSE OF UNDERSTANDING. RESP. REG. AND EVEN WITH OUT DISTRESS NOTED. NO SOB NOTED. REPORT CALLED TO MINOO GIBSON AT [facility]. PATIENT WAS ABLE TO STAND WITH WEIGHT BEARING TO GET UP TO HER W/C. PATIENT TOLERATED GETTING UP WELL. NO C/O OR DISTRESS NOTED. PATIENT SENT BACK TO [facility] VIA W/C PER MEDICAL TRANSPORT. .
[2018-07-31 14:40] VITALS: BP 99/51
== END 2018-07-31 14:10 ==
LOC: US 09:57
DX: R18.8 Other ascites (principal); K74.60 Unspecified cirrhosis of liver; I25.10 Atherosclerotic heart disease of native coronary artery without angina pectoris; I48.2 Chronic atrial fibrillation; E78.5 Hyperlipidemia, unspecified; E03.9 Hypothyroidism, unspecified; I69.351 Hemiplegia and hemiparesis following cerebral infarction affecting right dominant side; I25.2 Old myocardial infarction; Z90.49 Acquired absence of other specified parts of digestive tract; Z79.899 Other long term (current) drug therapy
CPT/HCPCS: 49083; C1729

== ENCOUNTER 2018-08-03 16:00 | Emergency (ER) | payer MEDICARE, OTHER ==
[~2018-08-03] VITALS: Ht 134.6 cm; Wt 36.3 kg
[2018-08-03 16:18] VITALS: Ht 134.6 cm; Wt 36.3 kg
[2018-08-03 21:22] VITALS: BP 135/55
== END 2018-08-03 21:22 | disposition home or self-care (01) ==
LOC: ED 16:00
DX: K91.89 Other postprocedural complications and disorders of digestive system (principal); Y83.8 Other surgical procedures as the cause of abnormal reaction of the patient, or of later complication, without mention of misadventure at the time of the procedure; I10 Essential (primary) hypertension; E03.9 Hypothyroidism, unspecified; I48.91 Unspecified atrial fibrillation; Z86.79 Personal history of other diseases of the circulatory system; Z90.49 Acquired absence of other specified parts of digestive tract; Y92.89 Other specified places as the place of occurrence of the external cause